=== PATIENT | female | born 1975 ===

== ENCOUNTER 2023-11-08 06:50 | Outpatient (CLI) | payer BC, SELFPAY ==
--- NOTE | 2023-11-08 07:03 | MR_ITS ---
WS: [id number] MRI LUMBAR SPINE NONCONTRAST HISTORY: LUMBAR RADICULOPATHY COMPARISON: None available. TECHNIQUE: Sagittal and axial multisequence imaging is submitted. Mild increase in the lumbar lordosis. Posterior lumbar alignment is normal. Small corner endplate hiram tebral body edema noted at T11, T12, L1, L2, L5 and S1. Disc spaces and vertebral body heights are well-preserved. Conus terminates normally at L1-2 disc level. L1-L2: Normal. L2-L3: Normal. L3-L4: Mild disc bulging with mild ligamentum flavum and facet arthritis. No significant stenosis or disc protrusions. L4-L5: Mild disc bulging. Moderate ligamentum flavum and facet joint arthritis. Small amount of fluid in the facet joints. There is very minimal encroachment upon the subarticular recesses. No high-grad e stenosis. L5-S1: Mild disc bulging encroaching close to the S1 nerve roots. No high-grade stenosis. Visualized retroperitoneum is negative. MR/MR lumbar spine wo con* [id number] IMPRESSION: 1. No high-grade central or foraminal stenosis or disc protrusions. 2. Mild to moderate facet joint arthritis from L3-4 to L5-S1. Most significant at L4-5. 3. Vertebral body corner edema at several levels in the lower thoracic and lum bar spines. This is typically seen with spondylarthritis such as ankylosing spo ndylitis. 4. No lumbar spine fracture.
== END 2023-11-08 06:51 | disposition home or self-care (01) ==
LOC: RAD 06:56
PROVIDERS: Visit Provider Family Medicine
DX: M54.16 Radiculopathy, lumbar region (principal); M40.56 Lordosis, unspecified, lumbar region; M47.896 Other spondylosis, lumbar region
CPT/HCPCS: 72148